=== PATIENT | male | born 1990 ===

== ENCOUNTER 2017-01-02 10:15 | Emergency (ER) | payer BC, OTHER ==
[2017-01-02 10:23] VITALS: BP 128/70
[2017-01-02] MEDS ORDERED: Tetan/Diph/Pertus SYR(Tdap)* 0.5 ML SYR(BOOSTRIX) use SYR IM ONE ×2 (10:35→10:38)
--- NOTE | 2017-01-02 10:48 | UC ---
Laceration HPI - HPI Summary HPI Summary: 26 yo male with left arm laceration that occurred yesterday Comes here requesting tetanus he is right handed laceration has sealed and he states it was superficial - History Of Current Complaint Chief Complaint: UCLaceration Stated Complaint: ARM LAC Time Seen by Provider: 01/02/17 10:32 Hx Obtained From: Patient Onset/Duration: Sudden Onset Severity: Mild Pain Intensity: 0 Pain Scale Used: 0-10 Numeric Aggravating Factors: Nothing - Allergies/Home Medications Allergies/Adverse Reactions: Allergies Allergy/AdvReac Type Severity Reaction Status Date / Time No Known Allergies Allergy Verified 01/02/17 10:24 Home Medications: Home Medications NK [No Home Medications Reported] 01/02/17 [History Confirmed 01/02/17] PMH/Surg Hx/FS Hx/Imm Hx Previously Healthy: Yes - Surgical History Surgical History: Yes Surgery Procedure, Year, and Place: pacemaker. neck - Family History Known Family History: Positive: Hypertension - Social History Alcohol Use: Occasionally Substance Use Type: None Smoking Status (MU): Never Smoked Tobacco Review of Systems Constitutional: Negative Skin: Negative Eyes: Negative ENT: Negative Respiratory: Negative Cardiovascular: Negative Gastrointestinal: Negative Genitourinary: Negative Motor: Negative Neurovascular: Negative Musculoskeletal: Negative Neurological: Negative Psychological: Negative Is Patient Immunocompromised?: No All Other Systems Reviewed And Are Negative: Yes Physical Exam Triage Information Reviewed: Yes Appearance: Well-Appearing, No Pain Distress, Well-Nourished Vital Signs: Initial Vital Signs Temp 97.8 F 01/02/17 10:19 Pulse 54 01/02/17 10:19 Resp 16 01/02/17 10:19 BP 128/70 01/02/17 10:19 Pulse Ox 99 01/02/17 10:19 Vital Signs Reviewed: Yes Eyes: Positive: Conjunctiva Clear ENT: Positive: Hearing grossly normal. Negative: Nasal congestion, Nasal drainage, Trismus, Muffled/hoarse voice Neck: Positive: Supple, Nontender Respiratory: Positive: Lungs clear, Normal breath sounds, No respiratory distress, No accessory muscle use Cardiovascular: Positive: RRR, No Murmur Musculoskeletal: Positive: Strength Intact, ROM Intact Neurological: Positive: Alert Psychological Exam: Normal Skin Exam: Other - 4cm sealed laceration to left forearm no surrounding erythema Laceration Course/Dx - Differential Dx - Laceration/Wound Provider Diagnoses: healing left forearm laceration. tetanus updated Discharge - Discharge Plan Condition: Stable Disposition: HOME Patient Education Materials: Laceration Without Closure (ED) Referrals: Steven Stern MD [Primary Care Provider] - Additional Instructions: recheck for concerns of infection
== END 2017-01-02 10:45 | disposition home or self-care (01) ==
LOC: UCEAST 10:15
DX: S51.812A Laceration without foreign body of left forearm, initial encounter (principal); X58.XXXA Exposure to other specified factors, initial encounter; Y93.9 Activity, unspecified; Y92.9 Unspecified place or not applicable; Z23 Encounter for immunization; Z95.0 Presence of cardiac pacemaker
CPT/HCPCS: 90471; 90715; 99201; G0463